=== PATIENT | female | born 1950 | race Two or more races ===

== ENCOUNTER 2016-10-21 18:20 | Emergency (ER) | payer BC ==
[~2016-10-21] VITALS: Ht 147.3 cm; Wt 36.3 kg
[2016-10-21 21:00] VITALS: BP 129/88
[2016-10-21] MEDS ORDERED: methylPREDNISolone SOD SUCC 125 MG/2 ML VL IM ONE ×2 (21:15)
[2016-10-21] MEDS ORDERED: diphenhdrAMINE HCL 25 MG CAP PO ONE ×2 (21:15)
== END 2016-10-21 21:55 | disposition home or self-care (01) ==
LOC: ER 18:26
DX: R21 Rash and other nonspecific skin eruption (principal)
CPT/HCPCS: 96372; 99283; J2930